=== PATIENT | male | born 1965 | race African-American/Black ===

== ENCOUNTER 2016-05-30 16:47 | Emergency (ER) | payer OTHER | END 2016-05-30 17:33 | disposition home or self-care (01) | LOC: EME → EDBD 16:47 → EME 16:47 | DX: F10.129 Alcohol abuse with intoxication, unspecified (principal) | CPT/HCPCS: 99281; 99282 ==

== ENCOUNTER 2017-06-24 20:05 | Emergency (ER) | payer SELFPAY ==
[2017-06-24 20:26] LABS: BASOPHIL (%) 0.5 % (0-1); BASOPHIL COUNT 0.1 K/uL (0-0.1); EOSINOPHIL (%) 0.4 % (0-5); HEMATOCRIT 40.3 % (38.0-50.0); HEMOGLOBIN 12.9 G/DL (12.5-16.6); IMMATURE GRANULOCYTE (%) 0.3 % (0.0-0.7); LYMPHOCYTE (%) 36.3 % (15-42); LYMPHOCYTE COUNT 3.7 K/uL (1.0-2.8); MCV 87.6 FL (86-99); MONOCYTE (%) 7.9 % (3-12); MONOCYTE COUNT 0.8 K/uL (0-0.8); NEUTROPHIL (%) 54.6 % (45-76); NEUTROPHIL COUNT 5.5 K/uL (1.8-6.4); PLATELET COUNT 252 K/uL (156-360); RBC DIS.WIDTH-CV 14.6 % (11.8-14.6); RBC DIS.WIDTH-SD 46.3 % (39-53); WHITE BLOOD COUNT 10.1 K/uL (4.1-10.2)
[2017-06-24 20:34] LABS: AMYLASE 116 IU/L (1-118); CHLORIDE 107 mEq/L (99-109); POTASSIUM 3.8 mEq/L (3.7-5.4); SODIUM 143 mEq/L (136-147)
[2017-06-24 20:36] LABS: GLUCOSE 65 mg/dL (70-99)
[2017-06-24 20:39] LABS: CREATININE 0.8 mg/dL (0.6-1.3); GFR ESTIMATE (CALCULATED) > 59 mL/min/ (58.99-99999); SERUM ETHYL ALCOHOL 211 mg/dL
[2017-06-24 20:40] LABS: UREA NITROGEN (BUN) 13 mg/dL (9-23)
[2017-06-24 20:42] LABS: LIPASE 47 U/L (1.0-51.0)
[2017-06-24] MEDS ORDERED: PERCOCET 5/31 TABLET PO (21:13)
[2017-06-24 21:15] LABS: APPEARANCE CLEAR ((CLEAR)); BILIRUBIN NEGATIVE; BLOOD SMALL; COLOR STRAW ((YELLOW)); GLUCOSE (STRIP) NEGATIVE; KETONES NEGATIVE; LEUKOCYTES NEGATIVE; NITRITE NEGATIVE; PROTEIN (STRIP) NEGATIVE; SPECIFIC GRAVITY 1.017 (1.000-1.030); UROBILINOGEN 0.2 MG/DL (0.2-1.0)
[2017-06-24 21:20] LABS: BACTERIA RARE /HPF; EPITHELIAL CELLS NONE SEEN /HPF; MUCUS NONE SEEN /LPF; RED BLOOD CELLS 0-5 /HPF (0-5); UCUL ADDED? NO; WHITE BLOOD CELLS NONE SEEN /HPF (0-5)
[2017-06-24 21:34] LABS: AMPHETAMINE NEGATIVE (500 ng/mL); BARBITURATES NEGATIVE (200 ng/mL); BENZODIAZEPINES NEGATIVE (150 ng/mL); BUPRENORPHINE NEGATIVE (10 ng/mL); COCAINE NEGATIVE (150 ng/mL); METHADONE NEGATIVE (200 ng/mL); METHAMPHETAMINE NEGATIVE (500 ng/mL); OPIATES (MORPHINE) NEGATIVE (100 ng/mL); OXYCODONE NEGATIVE (100 ng/mL); PHENCYCLIDINE NEGATIVE (25 ng/mL); PROPOXYPHENE NEGATIVE (300 ng/mL); THC CANNABINOIDS NEGATIVE (50 ng/mL); TRICYCLIC ANTIDEPRESSANTS NEGATIVE (300 ng/mL)
== END 2017-06-24 23:19 ==
LOC: TRA 20:05
PROVIDERS: Emergency Medicine
DX: S82.891A Other fracture of right lower leg, initial encounter for closed fracture (principal); S02.2XXA Fracture of nasal bones, initial encounter for closed fracture; S52.92XA Unspecified fracture of left forearm, initial encounter for closed fracture; S00.212A Abrasion of left eyelid and periocular area, initial encounter; V03.90XA Pedestrian on foot injured in collision with car, pick-up truck or van, unspecified whether traffic or nontraffic accident, initial encounter; Y92.410 Unspecified street and highway as the place of occurrence of the external cause; Z23 Encounter for immunization
CPT/HCPCS: 70450; 70486; 71260; 72125; 73090; 73590; 73600; 74177; 80048; 81003; 82150; 83690; 85025; 86850; 86900; 86901; 99281; 99285; G0480

== ENCOUNTER 2017-08-04 17:27 | Emergency (ER) | payer SELFPAY ==
[~2017-08-04] VITALS: Ht 175.3 cm
[~2017-08-04 17:27] MED LIST: PERCOCET 5/31 TABLET PO
[2017-08-04 17:46] VITALS: BP 159/93
[2017-08-04 18:07] LABS: HEMATOCRIT 38.4 % (38.0-50.0); HEMOGLOBIN 12.6 G/DL (12.5-16.6); MCH 28.5 PG (29.0-34.0); MCHC 32.8 G/DL (30.0-36.0); MCV 86.9 FL (86-99); PLATELET COUNT 270 K/uL (156-360); RBC DIS.WIDTH-CV 13.9 % (11.8-14.6); RBC DIS.WIDTH-SD 45.1 % (39-53); RED BLOOD COUNT 4.42 M/uL (4.00-5.50)
[2017-08-04 18:19] LABS: CHLORIDE 108 mEq/L (99-109); POTASSIUM 3.9 mEq/L (3.7-5.4); SODIUM 144 mEq/L (136-147)
[2017-08-04 18:20] LABS: GLUCOSE 90 mg/dL (70-99)
[2017-08-04 18:24] LABS: GFR ESTIMATE (CALCULATED) > 59 mL/min/ (58.99-99999); SERUM ETHYL ALCOHOL 94 mg/dL
[2017-08-04 18:25] LABS: UREA NITROGEN (BUN) 15 mg/dL (9-23)
== END 2017-08-04 21:55 ==
LOC: EME 17:27
PROVIDERS: Emergency Medicine Emergency Medical Services
DX: F32.9 Major depressive disorder, single episode, unspecified (principal); F10.129 Alcohol abuse with intoxication, unspecified; Y90.4 Blood alcohol level of 80-99 mg/100 ml; Z04.6 Encounter for general psychiatric examination, requested by authority; F17.200 Nicotine dependence, unspecified, uncomplicated
CPT/HCPCS: 80048; 85027; 90837; 99281; 99285; G0480

== ENCOUNTER 2017-10-18 20:31 | Emergency (ER) | payer SELFPAY ==
[~2017-10-18] VITALS: Ht 177.8 cm; Wt 70.7 kg
[2017-10-18 21:59] VITALS: BP 117/73
== END 2017-10-18 22:01 ==
LOC: EME 20:31
DX: F10.129 Alcohol abuse with intoxication, unspecified (principal)
CPT/HCPCS: 70450; 99281; 99283